=== PATIENT | male | born 1975 | race Caucasian/White ===

== ENCOUNTER 2017-10-04 22:35 | Inpatient (IN) | payer OTHER ==
[~2017-10-04] VITALS: Ht 188 cm; Wt 154.2 kg
[2017-10-04 20:30] VITALS: BP 145/69
[2017-10-04 22:40] VITALS: BP 143/85
[2017-10-04 23:24] LABS: ABSOLUTE BASOPHILS 0.1 thou/uL (0.0-0.2); ABSOLUTE LYMPHOCYTES 2.3 thou/uL (0.8-5.3); ABSOLUTE NEUTROPHILS 10.2 thou/uL (1.6-8.1); BASOPHILS 0.7 %; EOSINOPHILS 0.3 %; HEMATOCRIT 43.2 % (42.0-52.0); HEMOGLOBIN 14.6 gm/dL (14.0-18.0); MCH 28.6 pg (26.0-34.0); MCHC 33.7 g/dL (28.0-37.0); MCV 84.8 fL (80.0-100.0); MONOCYTES 7.4 %; MPV 7.9 fl. (7.2-11.1); NUCLEATED RBCS 0 /100WBC; PLATELET COUNT* 200 thou/uL (150-400); POLYS 74.6 %; RBC 5.09 mil/uL (4.50-6.00); RDW-CV 14.8 % (10.5-14.5); WBC 13.7 thou/uL (4.0-11.0)
[2017-10-04 23:26] LABS: CALCIUM 9.1 mg/dL (8.5-10.1); CREATININE 1.1 mg/dL (0.6-1.3); POTASSIUM 4.1 mmol/L (3.5-5.1)
[2017-10-04 23:31] LABS: ALBUMIN 3.6 g/dL (3.4-5.0); TOTAL BILIRUBIN 0.8 mg/dL (<0.1-1.0); TOTAL PROTEIN 8.1 g/dL (6.4-8.2)
[2017-10-05] VITALS (7 sets, daily range): BP systolic 124–155; BP diastolic 69–86
[2017-10-05 00:34] LABS: ESR (SEDRATE) 33 mm/hr (0-15)
[2017-10-05 03:18] LABS: URINE BILIRUBIN NEGATIVE (Negative); URINE BLOOD NEGATIVE (Negative); URINE CLARITY CLEAR; URINE COLOR YELLOW; URINE GLUCOSE-RANDOM 3+ (Negative); URINE KETONES 1+ (Negative); URINE LEUKOCYTES-REFLEX NEGATIVE (Negative); URINE NITRITE-REFLEX NEGATIVE (Negative); URINE PROTEIN NEGATIVE (Negative); URINE UROBILINOGEN 0.2 E.U./dl (0.2-1.0)
--- NOTE | 2017-10-05 06:04 | NUR ---
RECEIVED REPORT FROM ER NURSE PATRN AT 0034. PT ARRIVED TO UNIT AT 0043. NURSING ASSESSMENT COMPLETED, PT NEGATIVE FOR SEPSIS SCREENING, HOURLY ROUNDING COMPLETED, PT VOICED NO CONCERNS, PRN PAIN MEDICATION ADMININSTERED AND PARTIALLY EFFECTIVE, PT WEARING SCD'S. IVF INFUSING, TRACING SINUS TACHY IN THE LOW 100'S UPON ARRIVAL TO UNIT. PT HR IN THE 80'S AT 0600. CALL LIGHT WITHIN REACH.
--- NOTE | 2017-10-05 07:45 | NUR ---
ASSUMED PT. CARE AND RECEIVED REPORT AT 0730. PT A/OX4, VSS, MONITOR ON TRACING SR. PT. C/O PAIN IN SUPRAPUBIC REGION 02/22 AT THIS TIME. ON RA @ 94%. FULL ASSESSMENT COMPLETED, REFER TO CHARTING. DR. JOE NOTIFIED OF NEED FOR PAIN MEDS THROUGH [facility]. CALL LIGHT IN REACH, WILL CONTINUE WITH PLAN OF CARE.
--- NOTE | 2017-10-05 11:05 | NUR ---
MET WITH PT TO DISCUSS HOME SITUATION/DC PLANNING. PT LIVES WITH AND SON. 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 PT LIVES IN [place], [place]. HE IS NORMALLY INDEPENDENT AND ACTIVE. USES NO EQUIPMENT. AND SON ARE STAYING IN [place]. PT FOLLOWS WITH DR ALDRICH IN [place], [place] AND USES [facility] FOR SCRIPTS. HE PLANS TO RETURN HOME AT [place]. CM TO FOLLOW
[2017-10-05 11:47] LABS: ABSOLUTE BASOPHILS 0.2 thou/uL (0.0-0.2); ABSOLUTE EOSINOPHILS 0.1 thou/uL (0.0-0.7); ABSOLUTE LYMPHOCYTES 2.4 thou/uL (0.8-5.3); ABSOLUTE MONOCYTES 0.9 thou/uL (0.0-1.2); ABSOLUTE NEUTROPHILS 7.4 thou/uL (1.6-8.1); BASOPHILS 1.4 %; EOSINOPHILS 0.9 %; HEMATOCRIT 40.5 % (42.0-52.0); HEMOGLOBIN 13.6 gm/dL (14.0-18.0); LYMPHOCYTES 21.9 %; MCH 28.3 pg (26.0-34.0); MCHC 33.5 g/dL (28.0-37.0); MCV 84.6 fL (80.0-100.0); MONOCYTES 8.2 %; MPV 7.6 fl. (7.2-11.1); NUCLEATED RBCS 0 /100WBC; PLATELET COUNT* 159 thou/uL (150-400); POLYS 67.6 %; RBC 4.79 mil/uL (4.50-6.00)
[2017-10-05 12:13] LABS: ALBUMIN 3.2 g/dL (3.4-5.0); CALCIUM 8.2 mg/dL (8.5-10.1); CREATININE 0.8 mg/dL (0.6-1.3); MAGNESIUM 1.7 mg/dL (1.8-2.4); POTASSIUM 4.3 mmol/L (3.5-5.1); TOTAL BILIRUBIN 0.8 mg/dL (<0.1-1.0); TOTAL PROTEIN 7.4 g/dL (6.4-8.2)
--- NOTE | 2017-10-05 18:22 | NUR ---
PT. STABLE THROUGH OUT SHIFT. PAIN WELL CONTROLLED ON ORAL MED THIS AFTERNOON. PT. SEEN BY SURGERY, ULTRASOUND ORDERED FOR ASSESSMENT. PT. NOW MED/SURG STATUS. HOURLY ROUNDING COMPLETE THROUGH OUT THE DAY FOR PT. SAFETY.
[2017-10-06] VITALS: BP 148/85
[2017-10-06 02:12] LABS: GLYCOHEMOGLOBIN (HGB A1C) 11.5 % (4.8-5.6)
--- NOTE | 2017-10-06 04:50 | NUR ---
ASSUMED CARE OF PT AT 1930, NURSING ASSESSMENT COMPLETED AT START OF SHIFT, PT RESTING IN BED, VOICED NO CONCERNS, PT MED SURG STATUS. PT FEBRILE AT 2034, TEMP 102.6 F ORAL. ADMINISTERED PRN ACETAMINOPHEN-SEE EMAR FOR DOCUMENTATION. PT PROVIDED COOL WASH CLOTHS. INTERVENTIONS EFFECTIVE. PT TEMP 99.5 AT 0453. DENIES PAIN WHILE IN BED. HOURLY ROUNDING COMPLETED, IVF INFUSING, CALL LIGHT REMAINS WITHIN REACH.
[2017-10-06 05:13] LABS: ABSOLUTE BASOPHILS 0.1 thou/uL (0.0-0.2); ABSOLUTE EOSINOPHILS 0.1 thou/uL (0.0-0.7); ABSOLUTE LYMPHOCYTES 2.6 thou/uL (0.8-5.3); ABSOLUTE NEUTROPHILS 9.4 thou/uL (1.6-8.1); BASOPHILS 0.4 %; HEMATOCRIT 40.5 % (42.0-52.0); HEMOGLOBIN 13.6 gm/dL (14.0-18.0); LYMPHOCYTES 19.5 %; MCH 28.5 pg (26.0-34.0); MCHC 33.6 g/dL (28.0-37.0); MONOCYTES 7.4 %; NUCLEATED RBCS 0 /100WBC; PLATELET COUNT* 176 thou/uL (150-400); POLYS 71.7 %; RBC 4.77 mil/uL (4.50-6.00); RDW-CV 14.5 % (10.5-14.5); WBC 13.1 thou/uL (4.0-11.0)
[2017-10-06 05:35] LABS: CALCIUM 8.6 mg/dL (8.5-10.1); CREATININE 0.8 mg/dL (0.6-1.3); MAGNESIUM 1.7 mg/dL (1.8-2.4); POTASSIUM 4.3 mmol/L (3.5-5.1)
[2017-10-06 08:05] VITALS: BP 147/77
[2017-10-06 17:33] VITALS: BP 140/65
--- NOTE | 2017-10-06 18:48 | NUR ---
ASSUMED PT CARE AT 1600, PT A/O X4, DENIES PAIN, FEBRILE, GIVEN TYLENOL. ICE PACKS PROVIDED, PT APPLYING WARM PACKS TO SCROTUM. PT CALLS APPROPRIATLY FOR ASSISTANCE, UP AD CYDNEY IN ROOM. HOPING TO DISCHARGE TOMORROW. WILLCONTINUE TO MONITOR.
[2017-10-06 20:00] VITALS: BP 128/76
[2017-10-07 04:18] VITALS: BP 145/74
--- NOTE | 2017-10-07 07:04 | NUR ---
ASSUMED CARE OF PT AT 1930, NURSING ASSESSMENT COMPLETED AT START OF SHIFT. PT VOICED NO CONCERNS THIS SHIFT. PT CALLED OUT THIS SHIFT STATING BUMP ON INGUINAL REGION DRAINING. PURULENT DISCHARGE NOTED FROM AREA. AREA CLEANED, PT STATED SITE FELT BETTER. PRN PAIN MEDICATION ADMINISTERED X2 THIS SHIFT. SEE EMAR FOR DOCUMENTATION. NO OTHER CONCERNS VOICED THIS SHIFT. IV FLUIDS INFUSING, CALL LIGHT WITHIN REACH.
[2017-10-07 07:22] LABS: ABSOLUTE BASOPHILS 0.1 thou/uL (0.0-0.2); ABSOLUTE EOSINOPHILS 0.1 thou/uL (0.0-0.7); ABSOLUTE LYMPHOCYTES 2.4 thou/uL (0.8-5.3); ABSOLUTE MONOCYTES 0.8 thou/uL (0.0-1.2); ABSOLUTE NEUTROPHILS 7.6 thou/uL (1.6-8.1); HEMATOCRIT 41.7 % (42.0-52.0); HEMOGLOBIN 13.8 gm/dL (14.0-18.0); LYMPHOCYTES 21.6 %; MCH 28.2 pg (26.0-34.0); MCHC 33.1 g/dL (28.0-37.0); MONOCYTES 7.4 %; MPV 7.8 fl. (7.2-11.1); NUCLEATED RBCS 0 /100WBC; PLATELET COUNT* 176 thou/uL (150-400); RBC 4.91 mil/uL (4.50-6.00); RDW-CV 14.7 % (10.5-14.5); WBC 10.9 thou/uL (4.0-11.0)
[2017-10-07 07:36] LABS: CALCIUM 8.4 mg/dL (8.5-10.1); CREATININE 0.8 mg/dL (0.6-1.3); POTASSIUM 4.1 mmol/L (3.5-5.1); TOTAL BILIRUBIN 0.8 mg/dL (<0.1-1.0); TOTAL PROTEIN 7.4 g/dL (6.4-8.2)
[2017-10-07 08:00] VITALS: BP 146/73
--- NOTE | 2017-10-07 08:19 | NUR ---
ASSUMED PT CARE AT 0730, FULL ASSESMENT DONE CHARTED. PT A/O X4, STATES HE IS FEELING BETTER. PAIN TO GROIN AT 6, PAIN MEDS GIVEN PER MAR. WARM COMPRESS APPLIED TO GROIN, PT STATES IT DRAINED A LITTLE LAST NIGHT. PT AFEBRILE, ALL OTHER VSS. TALKED TO PT RE:DIABETES EDUCATION, HE WILL NEED TO GO HOME WITH SOME ON DISCHARGE. PT HOPES TO DC TOMORROW. UP AD CYDNEY IN ROOM, FALL EDUCATION GIVEN. WILL CONTINUE WITH PLAN OF CARE.
[2017-10-07 15:47] VITALS: BP 151/92
--- NOTE | 2017-10-07 18:54 | NUR ---
PT PROGRESSING TOWARD GOALS, DRAINAGE FROM SUPRABUBIC AREA NOTED THROUGHOUT THE SHIFT. PT UP WALKING IN HALLS AND TOOK SHOWER, REPORTS THOSE HELPED. PAIN MEDS GIVEN TWICE DURING THIS SHIFT. PT USES CALL LIGHT APPROPRIATLY FOR NEEDS. WILL CONTINUE TO MONITOR TO END OF SHIFT.
[2017-10-07 19:45] VITALS: BP 159/86
[2017-10-08 04:00] VITALS: BP 147/81
[2017-10-08 04:56] LABS: CALCIUM 8.5 mg/dL (8.5-10.1); CREATININE 0.8 mg/dL (0.6-1.3); MAGNESIUM 1.7 mg/dL (1.8-2.4); POTASSIUM 4.2 mmol/L (3.5-5.1)
--- NOTE | 2017-10-08 07:01 | NUR ---
[facility] DRAINING BLOODY PUS THIS MORNING.
[2017-10-08 07:49] VITALS: BP 130/77
--- NOTE | 2017-10-08 14:40 | NUR ---
PT A & O X4, ABLE TO COMMUNICATE NEEDS TO STAFF. VS WNL. REPORTS PAIN LEVEL OF 6. PRN PAIN MED GIVEN X2 DURING SINCE 729. PT REPORTS PAIN IS INTERMITTENT WITH MOVEMENT. MED/SURG STATUS. UP ADLIB IN ROOM WITH NONSKID SOCKS ON BILAT FEET. ABD COVERING R SIDE OF SUPRAPUBIC AREA WHICH HAS TWO 0.1 CM CIRCULAR AREAS OF PUNCTURE TYPE SORES THAT ARE DRAINING SEROSANGUINOUS DRAINAGE. PRESSURE APPLIED BY NURSING X2 AND PATIENT X1, DRNG IS THICK, PINK TO RED WITH AMOUNT LESS THAN 1 ML OBSERVED BY THIS NURSE. REPORT CALLED TO KAMI AMARAL, JSSI. PT WILL TRANSFER TO ROOM 102. PT TRANSPORTED TO UNIT VIA WC AND NURSING STAFF. PT HAS ALL BELONGINGS IN HIS POSSESSION.
--- NOTE | 2017-10-08 15:05 | NUR ---
ASSUMED CARE OF PATIENT AT THIS TIME. DENIES PAIN. SET UP FOR SHOWER. AMBULATING AD CYDNEY IN ROOM. ORIENTED TO ROOM AND ENVIROMENT. AGREE WITH PREVIOUS ASSESSMENT.
[2017-10-08 15:40] VITALS: BP 135/93
--- NOTE | 2017-10-08 16:49 | NUR ---
PATIENT REMAINS ALERT AND ORIENTED. DENIES PAIN CURRENTLY. WARM COMPRESS PROVIDED. SHOWERED THIS AFTERNOON. IV SALINE LOCKED. METFORMIN WITH DINNER. PATIENT DENEIS FURTHER NEEDS. WILL CONTINUE TO MONITOR.
[2017-10-08 20:25] VITALS: BP 139/70
[2017-10-09 00:22] VITALS: BP 135/73
--- NOTE | 2017-10-09 04:21 | NUR ---
PATIENT ALERT AND ORIENTED. VITALS STABLE. RA. UP INDEPEDENTLY. AMBULATED HALLS AT HS. PAIN CONTROLLED WITH PO MEDICATION. DENIES NAUSEA. RESTING COMFORTABLY. INSTRUCTED TO CALL FOR ASSISTANCE. HOURLY ROUNDS. NURSING WILL CONTINUE TO MONITOR.
[2017-10-09 04:55] LABS: HEMATOCRIT 39.7 % (42.0-52.0); HEMOGLOBIN 13.5 gm/dL (14.0-18.0); MCH 28.6 pg (26.0-34.0); MCHC 34.1 g/dL (28.0-37.0); MCV 83.8 fL (80.0-100.0); MPV 7.9 fl. (7.2-11.1); RBC 4.74 mil/uL (4.50-6.00); RDW-CV 14.8 % (10.5-14.5); WBC 8.5 thou/uL (4.0-11.0)
[2017-10-09 05:17] LABS: CALCIUM 9.1 mg/dL (8.5-10.1); CREATININE 0.7 mg/dL (0.6-1.3); MAGNESIUM 1.7 mg/dL (1.8-2.4); PHOSPHORUS* 4.9 mg/dL (2.5-4.9)
[2017-10-09 08:22] VITALS: BP 132/64
[2017-10-09] MEDS ORDERED: CLEOCIN HCL150 MG PO (09:07)
[2017-10-09] MEDS ORDERED: GLUCOTROL5 MG PO (09:08)
[2017-10-09] MEDS ORDERED: METFORMIN HCL500 MG PO (09:08)
[2017-10-09] MEDS ORDERED: IBUPROFEN 800800 M1 PO (09:09)
[2017-10-09] MEDS ORDERED: HYDROCODONE-AP1 EAC6 PO (09:10)
[2017-10-09 09:12] VITALS: BP 132/64
--- NOTE | 2017-10-09 11:19 | NUR ---
PATIENT DISCHARGED TO HOME AT THIS TIME. PATIENT VERBALIZED UNDERSTANDING OF DC INSTRUCTIONS. IV REMOVED. SCRIPTS GIVEN. CALLED PATIENTS PCP AND MADE HIM APPT PRIOR TO DC FOR THURS. DIABETES EDUCATION PRIOR TO DC, PATIENT ENCOURAGED TO ATTEND DIABETES EDUCATION CLASSES ONCE HER RETURNS HOME. PATIENT DISCHARGED WITH SISTER.
== END 2017-10-09 11:21 | disposition home or self-care (01) | DRG 872 ==
LOC: M.ERS 22:35 → M.2W 10-05 00:05 → M.TBA-ER 10-05 00:05 → M.2W 10-05 00:37 → M.ORTHSURG 10-08 15:02
PROVIDERS: Internal Medicine; Nurse Practitioner; Surgery; ADMIT Internal Medicine
DX: A41.9 Sepsis, unspecified organism (principal); L02.211 Cutaneous abscess of abdominal wall; Z68.41 Body mass index [BMI] 40.0-44.9, adult; L03.314 Cellulitis of groin; E66.9 Obesity, unspecified; R73.03 Prediabetes; Z88.0 Allergy status to penicillin; Z88.1 Allergy status to other antibiotic agents; Z83.3 Family history of diabetes mellitus; Z28.21 Immunization not carried out because of patient refusal